=== PATIENT | male | born 1960 | race African-American/Black ===

== ENCOUNTER 2024-07-25 19:27 | Emergency (ER) | payer MEDICAID ==
[~2024-07-25] VITALS: Ht 177.8 cm; Wt 96.0 kg
[~2024-07-25 19:27] MED LIST: HYDR100T11 PO; METO-411 PO; NIFE20CA8 PO; SUCR500T PO
[2024-07-25 19:39] VITALS: O2SAT 100
[2024-07-25 20:07] LABS: EOSINOPHILS % 8.1 % (0.0-5.0); HEMATOCRIT. 26.6 % (42.0-52.0); LYMPHOCYTES % 31.2 % (20.0-50.0); MEAN CORPUSCULAR HEMOGLOBIN 33.5 pg (28.0-32.0); MEAN CORPUSCULAR HGB CONC 33.7 g/dL (31.0-37.0); MEAN CORPUSCULAR VOLUME 99.2 fL (80.0-94.0); MEAN PLATELET VOLUME 8.3 fl (7.4-10.4); MONOCYTES % 12.3 % (2.0-8.0); NEUTROPHILS % 47.4 % (40.0-76.0); PLATELET 186 x1000/uL (130-400); RED BLOOD CELL COUNT 2.68 mill/uL (4.7-6.1); RED CELL DISTRIBUTION WIDTH 15.3 % (11.6-14.6); WHITE BLOOD COUNT 5.5 x1000/uL (4.5-11.0)
[2024-07-25 20:14] LABS: CHLORIDE 99 mEq/L (98-107); POTASSIUM 4.6 mEq/L (3.5-5.1); SODIUM 137 mEq/L (136-145)
[2024-07-25 20:15] LABS: CARBON DIOXIDE 30 mEq/L (21-32)
[2024-07-25 20:16] LABS: CALCIUM 8.8 mg/dL (8.7-10.4)
[2024-07-25 20:18] LABS: PROTHROMBIN TIME 11.1 sec (9.6-11.0)
[2024-07-25 20:20] LABS: GLUCOSE 70 mg/dL (70-105); UREA NITROGEN BLOOD 41 mg/dL (9-23)
[2024-07-25 20:22] LABS: ALANINE AMINOTRANSFERASE 8 IU/L (10-49); ALBUMIN 3.9 g/dL (3.2-4.8); ASPARTATE AMINOTRANSFERASE 10 IU/L (<34); TROPONIN I HIGH SENSITIVITY 25 ng/L (3.0-53)
[2024-07-25 20:23] LABS: BILIRUBIN TOTAL 0.2 mg/dL (0.1-1.0)
[2024-07-25 20:31] LABS: BILIRUBIN DIRECT < 0.1 mg/dL (<=3.0)
[2024-07-25 20:35] LABS: CREATININE 12.6 mg/dL (0.6-1.3)
[2024-07-25 22:10] VITALS: TEMP 36.78072; O2SAT 99
[2024-07-25 22:36] VITALS: BP 155/56; PULSE 72; RESP 20
[2024-07-25] MEDS: HYDROCODONE/ACETAMINOPHEN 5/325MG TABLET PO ONE (22:36)
== END 2024-07-25 22:35 | disposition home or self-care (01) ==
LOC: ER 19:27
DX: N18.6 End stage renal disease (principal); I12.0 Hypertensive chronic kidney disease with stage 5 chronic kidney disease or end stage renal disease; Z88.8 Allergy status to other drugs, medicaments and biological substances; Z91.158 Patient's noncompliance with renal dialysis for other reason; Z79.899 Other long term (current) drug therapy; Z99.2 Dependence on renal dialysis
CPT/HCPCS: 80076; 80048; 83880; 85025; 85610; 84484; 36415; 71045; 93005; 99285; Z7610